=== PATIENT | female | born 1970 | race Two or more races ===

== ENCOUNTER → 2024-09-10 | Outpatient (CLI) | payer OTHER ==
[2024-09-10 07:03] LABS: Urine Bacteria None Seen /hpf (None Seen)
[2024-09-10 07:20] LABS: Urine Blood Negative /uL (Negative); Urine Clarity Clear (Clear); Urine Protein, UAD Negative (Negative); Urine Specific Gravity 1.006 (1.001-1.035); Urine Squamous Epithelial Cell FEW /hpf (<5); Urine Urobilinogen Normal (Negative); Urine WBC 2 /HPF (0-5)
[2024-09-10 07:23] LABS: Basophils # (auto) 0 10 ^3/uL (0-0.2); Basophils % (auto) 0.6 % (0.0-2.0); Eosinophils # (auto) 0.2 10 ^3/uL (0-0.8); Eosinophils % (auto) 2.6 % (0.0-7.0); Hematocrit 38.6 % (36.0-46.0); Hemoglobin 13.7 g/dL (12.2-16.2); Lymphocytes # (auto) 2.1 10 ^3/uL (0.4-5.4); Lymphocytes % (auto) 34.3 % (10.0-50.0); Mean Corpuscular Hemoglobin 32.6 pg (28.0-32.0); Mean Corpuscular Hgb Conc. 35.4 g/dL (32.0-36.0); Mean Corpuscular Volume 92.2 fL (80.0-100.0); Monocytes # (auto) 0.5 10 ^3/uL (0-1.3); Monocytes % (auto) 7.5 % (0.0-12.0); Neutrophils # (auto) 3.4 10 ^3/uL (1.6-8.6); Nucleated Red Blood Cells % 0.2 %; Platelet Count (auto) 253 10^3/uL (140-450); Red Blood Cells 4.19 10^6/uL (4.0-5.20); Red Cell Distribution Width 12.2 % (11.8-14.3); White Blood Cell 6.1 10^3/uL (4.4-10.8)
[2024-09-10 07:36] LABS: Urine Color Light-Yellow (Yellow)
[2024-09-10 07:40] LABS: Alanine Aminotransferase 13 U/L (7-40); Albumin 4.6 g/dL (3.2-4.8); Alkaline Phosphatase 78 U/L (46-116); Anion Gap 8 (5-15); Aspartate Aminotransferase 21 U/L (13-40); BUN/Creatinine Ratio 18.2 (10.0-20.0); Blood Urea Nitrogen 14 mg/dL (9-23); Calcium 9.7 mg/dL (8.7-10.4); Carbon Dioxide 27 mmol/L (20-31); Chloride 105 mmol/L (98-107); Cholesterol 185 mg/dL (< 200); Glucose 93 mg/dL (74-106); HDL Cholesterol 43 mg/dL (40-59); Sodium 140 mmol/L (136-145)
[2024-09-10 07:41] LABS: Bilirubin, Total 0.7 mg/dL (0.2-1.0)
[2024-09-10 07:45] LABS: Creatine Kinase IFCC 174 U/L (34-145); LDL Cholesterol 115 mg/dL (< 100); Total Protein 8.4 g/dL (5.7-8.2); Triglycerides 196 mg/dL (< 150)
[2024-09-10 10:37] LABS: Free T4 (Free Thyroxine) 1.33 ng/dL (0.89-1.76)
[2024-09-10 10:40] LABS: Free T3 3.56 pg/mL (2.3-4.2)
== END | disposition home or self-care (01) ==
LOC: LAB 06:47
PROVIDERS: ATTEND Internal Medicine
DX: Z12.11 Encounter for screening for malignant neoplasm of colon (principal); Z01.419 Encounter for gynecological examination (general) (routine) without abnormal findings; Z12.12 Encounter for screening for malignant neoplasm of rectum; E78.5 Hyperlipidemia, unspecified; E55.9 Vitamin D deficiency, unspecified; E03.9 Hypothyroidism, unspecified
CPT/HCPCS: 36415; 80053; 80061; 81001; 82270; 82306; 82550; 84439; 84443; 84481; 85025; 87086

== ENCOUNTER 2025-03-12 06:20 | Outpatient (CLI) | payer OTHER ==
[2025-03-12 07:05] LABS: Alanine Aminotransferase 11 U/L (7-40); Alkaline Phosphatase 74 U/L (46-116); Anion Gap 11 (5-15); BUN/Creatinine Ratio 14.5 (10.0-20.0); Blood Urea Nitrogen 11 mg/dL (9-23); Calcium 9.2 mg/dL (8.7-10.4); Carbon Dioxide 26 mmol/L (20-31); Chloride 104 mmol/L (98-107); Glucose 91 mg/dL (74-106); Potassium 3.9 mmol/L (3.5-5.1); Sodium 141 mmol/L (136-145)
[2025-03-12 07:06] LABS: Albumin 4.5 g/dL (3.2-4.8); Bilirubin, Total 0.6 mg/dL (0.2-1.0); Cholesterol 178 mg/dL (< 200); Creatine Kinase IFCC 119 U/L (34-145); HDL Cholesterol 43 mg/dL (40-59)
[2025-03-12 07:09] LABS: Free T3 4.08 pg/mL (2.3-4.2); Free T4 (Free Thyroxine) 1.31 ng/dL (0.89-1.76)
[2025-03-12 07:10] LABS: Total Protein 8.7 g/dL (5.7-8.2); Triglycerides 218 mg/dL (< 150)
== END 2025-03-12 17:00 | disposition home or self-care (01) ==
LOC: LAB 06:20
PROVIDERS: ATTEND Internal Medicine
DX: E78.5 Hyperlipidemia, unspecified (principal); E03.9 Hypothyroidism, unspecified
CPT/HCPCS: 36415; 80053; 80061; 82550; 84439; 84443; 84481